=== PATIENT | female | born 1965 | race Caucasian/White ===

== ENCOUNTER 2017-06-16 12:43 | Day surgery (SDC) | payer OTHER ==
[~2017-06-16] VITALS: Ht 170.2 cm; Wt 70.4 kg
[2017-06-16 13:35] VITALS: Ht 170.2 cm; Wt 70.4 kg
[2017-06-16] MEDS ORDERED: FLUO40CA10 PO (13:39)
[2017-06-16] MEDS ORDERED: ATOR40TA68 PO (13:39)
[2017-06-16] MEDS ORDERED: PRIMARIN (13:39)
[2017-06-16] MEDS ORDERED: LEVO100T87 PO (13:39)
[2017-06-16] MEDS ORDERED: LIDOCAINE 2% (SDV) 5 ML INJ ONE (15:43)
[2017-06-16] MEDS ORDERED: PROPOFOL 20 ML ONE (15:43)
[2017-06-16] MEDS ORDERED: MIDAZOLAM 1 MG/ML 2 ML INJ ONE (15:43)
[2017-06-16] MEDS ORDERED: FENTAnyl 50 MCG/ML VIAL ONE (15:43)
[2017-06-16 15:55] VITALS: BP 127/77; PULSE 57; RESP 25
--- NOTE | 2017-06-16 16:16 | OPPN ---
Date/Time of Note Date/Time of Note DATE: 06/16/17 TIME: 16:09 Proc Note GI Procedure Date 06/16/17 Indication: other (Colorectal cancer screening) Pre-procedure Diagnosis Colorectal cancer screening Post-procedure Diagnosis Impression: 8 mm sessile polyp proximal transverse colon. Snared and retrieved 3 mm sessile polyp proximal transverse colon. Ablated 6 mm sessile polyp sigmoid colon. Snared and retrieved Mild diverticular cyst left side of colon. Moderate-sized internal hemorrhoids. Plan: Follow up as scheduled] High fiber diet Annual hemoccult stool testing [Review pathology] [Surveillance colonoscopy in 5 years] . Procedure Performed: Colonoscopy (With ablation, colonoscopy with snare polypectomy) Surgeon ARIANE VINCENT MD See signature line Wrapping Machine Tender none Anesthesia Type: MAC Anesthesiologist: NI ADAN DO Tourniquet Time none EBL none Transfusion required none Biopsy 1: none Polyp 1: Transverse colon polyp 2 Polyp 2: Sigmoid colon Grafts/Implants none Tubes/Drains none Complication(s) none Disposition: home Procedure Description After informed consent, with the patient/relatives understanding the procedure, its indications and potential risks and complications, including but not limited to: Allergic reaction, bleeding, perforation, infection, and after all pertinent questions were answered to the patient's satisfaction, the patient/ relatives signed the witnessed informed consent. Following this, premedication was administered slowly IV push under careful cardiovascular and respiratory monitoring with pulse [employer], automatic blood pressure, and monitor tech. Once the sedative effect was achieved, the patient was placed in the left lateral decubitus position, digital rectal examination was performed. The colonoscope was then introduced and advanced under visual control throughout all segments of the colon including: the rectum, sigmoid, descending colon, splenic flexure, transverse colon, hepatic flexure, ascending colon and finally reaching the cecum which was clearly identified by transillumination, finger indentation and the ileocecal valve. Careful examination of the mucosa of the lower gastrointestinal tract both on insertion as well as withdrawal of the instrument disclosed the following findings: PREPARATION QUALITY: [Adequate], RECTAL EXAM: The anorectal area was visualized examined and digital rectal examination performed with the following findings: No evidence of perirectal disease, no masses. COLONIC MUCOSA: The mucosa of all segments of the colon was carefully examined and showed the following findings: There is an 8 mm sessile polyp in transverse colon. Snared and retrieved. A 3 mm polyp was noted adjacent to the previous one was ablated with biopsy forceps. There is mild diverticulosis left side of the colon. There is a 6 mm sessile polyp in the sigmoid colon was snared and retrieved. Moderate-sized internal hemorrhoids are present. Otherwise the examined mucosa appears within normal limits. There is no evidence of inflammatory changes, other polyps or neoplasms, vascular malformation, or any other abnormality. The instrument was then withdrawn, the patient tolerated the procedure well and was transferred out of the Endoscopy Suite awake and in good condition to continue recovery under observation. Copies To: CC: ARIANE VINCENT MD, MORDO MD Jun 16, 2017 16:16
[2017-06-16 16:43] VITALS: BP 111/73; PULSE 56; RESP 18
== END 2017-06-16 17:02 | disposition home or self-care (01) ==
LOC: GIL 12:43
PROVIDERS: ATTEND Internal Medicine Gastroenterology
DX: Z12.11 Encounter for screening for malignant neoplasm of colon (principal); D12.5 Benign neoplasm of sigmoid colon; D12.3 Benign neoplasm of transverse colon; K64.8 Other hemorrhoids; K63.89 Other specified diseases of intestine
CPT/HCPCS: 88305; J2250; J3010

== ENCOUNTER 2017-12-24 05:42 | Day surgery (SDC) | END 2017-12-24 11:15 | disposition home or self-care (01) ==